=== PATIENT | female | born 1950 | race African-American/Black ===

== ENCOUNTER 2019-10-10 16:04 | Outpatient (CLI) | payer OTHER, SELFPAY ==
--- NOTE | ~2019-10-10 | CT_ITS ---
EXAMINATION: CT abdomen pelvis w con DATE: 10/10/2019 17:04 INDICATION: Unspecified abdominal pain TECHNIQUE: Computed tomography (CT) of the abdomen and pelvis was performed with 100 mL Omnipaque-350 intravenous contrast. Automated exposure control and iterative reconstruction technique were employe d. The dose-length product was 502.86 mGy-cm. COMPARISON: None FINDINGS: Mild bibasilar atelectasis. Heart size is normal. No pericardial or pleural effusion. A couple tiny l ow-attenuation hepatic cysts. Gallbladder, spleen, pancreas, bilateral adrenal glands and kidneys are normal. No bowel obstruction or abnormal bowel wall thickening. The appendix is not visualized. No p ericecal inflammatory change to suggest acute appendicitis. Bladder is normal. The uterus is not iden tified and has likely been surgically resected. Multiple surgical clips along the bilateral iliac willi ins suggesting prior pelvic lymph node dissection. No free intraperitoneal gas or fluid. No pathologi chet enlarged abdominal or pelvic lymphadenopathy. Small fat-containing umbilical hernia. Mild dextr oscoliosis and kyphosis centered at T11 which demonstrates severe anterior vertebral body height loss which is fused anteriorly and posteriorly to T11 and T12. IMPRESSION: 1. No acute intra-abdominal/pelvic process. Reviewed, dictated and finalized at location A.
[2019-10-10 16:51] LABS: Estimated Glomerular Filt Rate > 60
[2019-10-10 19:49] LABS: Hematocrit 39.4 % (37.0-47.0); Hemoglobin 12.7 g/dL (12.0-15.0); Mean Corpuscular HGB Conc 32.2 g/dl (32-36); Mean Corpuscular Hemoglobin 28.5 pg (26-34); Mean Corpuscular Volume 88.5 fl (80-100); Mean Platelet Volume 10.6 fl (7.4-10.4); Platelet Count Result 268 k/mm3 (150-375); Red Blood Count 4.45 M/mm3 (4.2-5.4); Red Cell Distribution Width 13.7 % (11.5-14.5); White Blood Count 4.8 K/mm3 (4.5-10.0)
[2019-10-10 20:02] LABS: Alanine Aminotransferase 11 U/L (4-35); Albumin Level 4.5 g/dL (3.5-5.1); Alkaline Phosphatase 74 U/L (38-126); Anion Gap 7 mmol/L (8-16); Aspartate Amino Transferase 23 U/L (14-36); Bilirubin,Total 0.5 mg/dL (0.2-1.3); Blood Urea Nitrogen 12 mg/dL (7-17); Calcium 10.7 mg/dL (8.4-10.2); Carbon Dioxide 32 mmol/L (22-30); Chloride 96 mmol/L (98-107); Estimated Glomerular Filt Rate > 60; Glucose 97 mg/dL (65-105); Lipase 235 U/L (23-300); Potassium 3.2 mmol/L (3.4-5.0); Sodium 135 mmol/L (137-145)
== END 2019-10-10 16:30 | disposition home or self-care (01) ==
PROVIDERS: PCP Internal Medicine; Visit Provider Nurse Practitioner
DX: E78.5 Hyperlipidemia, unspecified (principal); R10.9 Unspecified abdominal pain
CPT/HCPCS: 36415; 74177; 80053; 83690; 85027; Q9967

== ENCOUNTER 2020-01-16 12:38 | Outpatient (CLI) | payer OTHER, SELFPAY ==
--- NOTE | ~2020-01-16 | XR_ITS ---
. EXAMINATION: XR lg joint inject/asp w image DATE: 01/16/2020 13:29 INDICATION: Unilateral primary osteoarthritis, right hip. TECHNIQUE: A time-out was performed to verify the patient's name, date of , and procedure to b e performed. The procedure including the risks, benefits, and alternatives was discussed with the pat ient. Risks discussed included bleeding and infection. The patient understood the risks and agreed to proceed. The skin overlying the right hip joint was prepped and draped in usual sterile fashion. A nesthetic was administered with 1% lidocaine subcutaneously. A 22 G needle was advanced under fluoro scopic guidance into the joint. Injection of 1 mL of Omnipaque 240 confirmed intra-articular positio n of the needle. Subsequently, injectate consisting of 5 mL 1% lidocaine and 2 mL 10 mg/mL Kenalog w as instilled. The needle was removed and the entry site was cleaned and dressed. There were no imme diate complications. Fluoroscopy exposure time was 0.1 minutes. The total number of images was 2. FINDINGS: Real-time fluoroscopy demonstrates the needle in the right hip joint. Patient's pain prior to procedure:5/10. Patient's pain following the procedure: 0/10. IMPRESSION: 1. Fluoroscopy guided right hip joint injection of local anesthetic and steroid with decrease in the patient's presenting pain. Reviewed, dictated and finalized at location A. URCE CONSERVATIONIST
== END 2020-01-16 12:39 | disposition home or self-care (01) ==
PROVIDERS: PCP Internal Medicine; Visit Provider Orthopaedic Surgery
DX: M16.11 Unilateral primary osteoarthritis, right hip (principal)
CPT/HCPCS: 20610; 77002; J3301; Q9966

== ENCOUNTER 2020-03-08 10:40 | Outpatient (CLI) | payer OTHER, SELFPAY ==
--- NOTE | ~2020-03-08 | MR_ITS ---
EXAMINATION: MR shoulder LT wo con DATE: 03/08/2020 11:36 INDICATION: Left shoulder pain TECHNIQUE: Magnetic resonance imaging (MRI) of the left shoulder was performed without intravenous co ntrast. Sequences included axial PD-weighted FS FSE, coronal oblique PD-weighted FS FSE, coronal obli que T2-weighted FS FSE, sagittal PD-weighted FS FSE, and sagittal T1-weighted SE. COMPARISON: None. FINDINGS: Coracoacromial arch: The acromion undersurface is minimally curved in morphology (type I-II). The coracoacromial ligament is normal. Mild acromioclavicular osteoarthritis. Rotator cuff: Moderate supraspinatus and infraspinatus tendinopathy without discrete tear. The teres minor and subs capularis tendons are normal. Normal rotator cuff muscle bulk and signal. Biceps tendon, glenoid labrum and glenohumeral cartilage: Long head of the biceps tendon is normal. Glenoid labrum is normal. Glenohumeral cartilage is normal. Fluid: Small amount of fluid in the long head biceps tendon sheath which is disproportionate to the physiolo gic amount fluid in the glenohumeral joint space consistent with mild tenosynovitis. No loose osteoch ondral bodies. Small amount of fluid in the subcoracoid bursa consistent with mild bursitis. Bones: Normal marrow signal with no edema, fracture or abnormal marrow replacing process. IMPRESSION: 1. Moderate supraspinatus and infraspinatus tendinopathy without discrete tear. 2. Mild bicipital tenosynovitis. 3. Mild subcoracoid bursitis. Reviewed, dictated and finalized at location B. NING LATHE OPERATOR AUTOMATIC
== END 2020-03-08 10:41 ==
PROVIDERS: PCP Internal Medicine; Visit Provider Orthopaedic Surgery
DX: M75.52 Bursitis of left shoulder (principal)
CPT/HCPCS: 73221

== ENCOUNTER 2020-03-24 13:04 | Outpatient (CLI) | payer SELFPAY ==
--- NOTE | ~2020-03-24 | DEXA_ITS ---
Bone Density Report Name: Kendra Toledo I Age: 69 Sex: Female Ethnicity: Black Date of : 1950 Indication: postmenopausal; height loss; cancer; hysterectomy; Referring Provider: Kathryn Borden Study: Bone densitometry was performed. Exam Date: March 24, 2020 Accession number: [id number] Bone Density: Region BMD T-score Z-score Classification AP Spine (L3, L4) 1.078 -0.2 1.2 Normal Femoral Neck (Left) 0.926 0.7 1.2 Normal Total Hip (Left) 1.168 1.9 2.0 Normal Total Hip Bilateral Avg 1.128 1.6 1.7 Normal Femoral Neck (Right) 0.811 -0.3 0.4 Normal Total Hip (Right) 1.087 1.2 1.4 Normal World Health Organization criteria for BMD impression classify patients as: Normal (T-score at or above -1.0), Osteopenia (T-score between -1.0 and -2.5), or Osteoporosis (T-score at or below -2.5). 10-year Fracture Risk: FRAX not reported because: All T-scores for Spine Total, Hip Total, Femoral Neck at or above -1.0 Clinical Information Provided by Patient: Has the following medical conditions: Cancer, Hysterectomy Patient maximum height was 65 Menopause Age: 51 No regular weight bearing exercise Onset of menses at age 15 Number of children 0 Impression: The patient has normal bone mass. Discussion: BONE DENSITY IS ABOVE THE MINIMUM DESIRABLE LEVEL AT ALL SKELETAL SITES TESTED. This patient?s bone mineral density is above the minimum desirable level (T-score -1.0 or better) at all sites measured. The patient should follow a healthful lifestyle (good nutrition with adequate calcium and vitamin D, and appropriate weight-bearing exercise). Follow-Up: Consider repeating this study in 5 years or sooner if there is some new clinical indication. Reported by: ANDRE on 03/24/2020 1:35:00 PM. Reviewed, dictated and finalized at location AShelby CURRAN
== END 2020-03-24 13:05 | disposition home or self-care (01) ==
LOC: ANHIMG 13:07
PROVIDERS: PCP Internal Medicine; Visit Provider Internal Medicine Endocrinology, Diabetes & Metabolism
DX: Z78.0 Asymptomatic menopausal state (principal)
CPT/HCPCS: 77080

== ENCOUNTER → 2020-05-29 07:12 | Outpatient (CLI) | payer SELFPAY ==
[2020-05-29 17:41] LABS: SARS-CoV-2 RNA PCR Negative
== END ==
PROVIDERS: PCP Internal Medicine; Visit Provider Internal Medicine
DX: R68.89 Other general symptoms and signs (principal); Z20.822 Contact with and (suspected) exposure to COVID-19
CPT/HCPCS: C9803; U0003; U0005

== ENCOUNTER 2020-08-15 08:42 | Outpatient (CLI) | payer MEDICARE, SELFPAY ==
--- NOTE | ~2020-08-15 | MM_ITS ---
EXAMINATION: MM screening bishnu BI w tejas HISTORY: Screening TECHNIQUE: Craniocaudal and mediolateral oblique 3-D tomosynthesis images were obtained and synthetic 2-D images were generated. CAD analysis was submitted and interpreted. COMPARISON: No prior mammogram is available for comparison at this institution. BREAST PARENCHYMAL COMPOSITION: There are scattered areas of fibroglandular density. FINDINGS: There is focal asymmetry in the upper outer quadrant of the left breast, middle third. Ther e are no suspicious masses, calcifications or architectural distortion in the right breast to suggest malignancy. IMPRESSION: 1. Focal left breast asymmetry. 2. Additional mammographic views and possible breast ultrasound are recommended. BI-RADS Category 0: Incomplete: Needs additional imaging evaluation. Reviewed, dictated and finalized at location A. IMPRESSION: 1. Focal left breast asymmetry. 2. Additional mammographic views and possible breast ultrasound are recommended . BI-RADS Category 0: Incomplete: Needs additional imaging evaluation.
== END 2020-08-15 08:43 | disposition home or self-care (01) ==
PROVIDERS: PCP Internal Medicine; Visit Provider Nurse Practitioner
DX: Z12.31 Encounter for screening mammogram for malignant neoplasm of breast (principal)
CPT/HCPCS: 77063; 77067

== ENCOUNTER 2020-09-18 10:09 | Outpatient (CLI) | payer MEDICARE, SELFPAY ==
--- NOTE | ~2020-09-18 | XR_ITS ---
EXAMINATION: XR lg joint inject/asp w image DATE: 09/18/2020 10:58 INDICATION: Unilateral primary osteoarthritis of the right hip TECHNIQUE: A time-out was performed to verify the patient's name, date of , and procedure to b e performed. The procedure including the risks, benefits, and alternatives was discussed with the pat ient. Risks discussed included bleeding and infection. The patient understood the risks and agreed to proceed. The skin overlying the right hip joint was prepped and draped in usual sterile fashion. A nesthetic was administered with 1% lidocaine subcutaneously. A 22 G needle was advanced under fluoro scopic guidance into the joint. Injection of 1 mL of Omnipaque 240 confirmed intra-articular positio n of the needle. Subsequently, injectate consisting of 7 mm a 5:2 mixture of 1% lidocaine: 10 mg/mL Kenalog for a total dosage of 20 mg Kenalog was instilled. Washout of contrast was seen confirming in tra-articular administration. The needle was removed and the entry site was cleaned and dressed. The re were no immediate complications. Fluoroscopy exposure time was 0.1 minutes. The total number of im ages was 2. Total DAP was 0.348 mGycm^2 FINDINGS: Real-time fluoroscopy demonstrates the needle in the left hip joint. Patient's pain prior t o procedure:06/23. Patient's pain following the procedure: 03/26. IMPRESSION: 1. Successful right hip joint injection of local anesthetic and steroid with decrease in the patient' s presenting pain. Reviewed, dictated and finalized at location A. IMPRESSION: 1. Successful right hip joint injection of local anesthetic and steroid with de crease in the patient's presenting pain.
== END 2020-09-18 10:10 | disposition home or self-care (01) ==
PROVIDERS: PCP Internal Medicine; Visit Provider Orthopaedic Surgery
DX: M16.11 Unilateral primary osteoarthritis, right hip (principal)
CPT/HCPCS: 20610; 77002; J3301; Q9966

== ENCOUNTER 2021-03-26 10:46 | Outpatient (CLI) | payer MEDICARE, SELFPAY ==
--- NOTE | ~2021-03-26 | XR_ITS ---
EXAMINATION: XR lg joint inject/asp w image DATE: 03/26/2021 11:46 INDICATION: Right hip osteoarthritis and pain TECHNIQUE: A time-out was performed to verify the patient's name, date of , and procedure to b e performed. The procedure including the risks, benefits, and alternatives was discussed with the pat ient. Risks discussed included bleeding and infection. The patient understood the risks and agreed to proceed. The skin overlying the right hip joint was prepped and draped in usual sterile fashion. A nesthetic was administered with 1% lidocaine subcutaneously. A 22 G needle was advanced under fluoro scopic guidance into the joint. Injection of 1 mL of Omnipaque 240 confirmed intra-articular positio n of the needle. Subsequently, injectate consisting of 7 mm a 5:2 mixture of 1% lidocaine: 10 mg/mL Kenalog for a total dosage of 20 mg Kenalog was instilled. Washout of contrast was seen confirming in tra-articular administration. The needle was removed and the entry site was cleaned and dressed. The re were no immediate complications. Fluoroscopy exposure time was 0.1 minutes. The total number of im ages was 2. FINDINGS: Real-time fluoroscopy demonstrates the needle in the right hip joint. Patient's pain prior to procedure:03/26. Patient's pain following the procedure: 02/23. IMPRESSION: 1. Successful right hip joint injection of local anesthetic and steroid with decrease in the patient' s presenting pain. Reviewed, dictated and finalized at location A. ING MACHINE OPERATOR IMPRESSION: 1. Successful right hip joint injection of local anesthetic and steroid with de crease in the patient's presenting pain.
== END 2021-03-26 10:47 | disposition home or self-care (01) ==
PROVIDERS: PCP Internal Medicine; Visit Provider Orthopaedic Surgery
DX: M16.11 Unilateral primary osteoarthritis, right hip (principal)
CPT/HCPCS: 20610; 77002; J3301; Q9966

== ENCOUNTER 2021-09-01 09:50 | Outpatient (CLI) | payer MEDICARE, SELFPAY ==
--- NOTE | ~2021-09-01 | XR_ITS ---
EXAMINATION: XR lg joint inject/asp w image DATE: 09/01/2021 10:37 INDICATION: Right hip pain. TECHNIQUE: A time-out was performed to verify the patient's name, date of , and procedure to b e performed. The procedure including the risks, benefits, and alternatives was discussed with the pat ient. Risks discussed included bleeding and infection. The patient understood the risks and agreed to proceed. The skin overlying the right hip joint was prepped and draped in usual sterile fashion. A nesthetic was administered with 1% lidocaine subcutaneously. A 20 G needle was advanced under fluoro scopic guidance into the joint. Subsequently, injectate consisting of 5 mL 1% lidocaine and 2 mL 10 mg/mL Kenalog was instilled. The needle was removed and the entry site was cleaned and dressed. The re were no immediate complications. Fluoroscopy exposure time was 0.1 minutes. The total number of im ages was 1. FINDINGS: Real-time fluoroscopy demonstrates the needle in the right hip joint. IMPRESSION: 1. Fluoroscopy guided right hip joint injection of local anesthetic and steroid. Reviewed, dictated and finalized at location A. IMPRESSION: 1. Fluoroscopy guided right hip joint injection of local anesthetic and steroid .
== END 2021-09-01 09:51 | disposition home or self-care (01) ==
PROVIDERS: PCP Internal Medicine; Visit Provider Nurse Practitioner
DX: M25.551 Pain in right hip (principal)
CPT/HCPCS: 20610; 77002; J3301; Q9966

== ENCOUNTER 2021-09-29 11:05 | Outpatient (CLI) | payer MEDICARE, SELFPAY ==
--- NOTE | ~2021-09-29 | US_ITS ---
US thyroid INDICATION: Thyroid goiter TECHNIQUE: Real-time sonographic images of the thyroid gland were obtained. COMPARISON: No prior studies for comparison. FINDINGS: The right thyroid lobe measures 2.9 x 1.7 x 1.7 cm. The left thyroid lobe measures 1.6 x 0 .9 x 0.9 cm. There is normal echotexture and echogenicity throughout the thyroid gland. In the left t hyroid lobe there is an oval solid hypoechoic mass measuring 8 x 9 x 5 mm. This mass is wider than ta ll, smoothly marginated without echogenic foci, TR 4. Normal vascular flow is present. IMPRESSION: 1. Hypoechoic 9 mm left thyroid mass, TR 4, likely benign. This does not meet sonographic criteria f or biopsy. Reviewed, dictated and finalized at location B. IMPRESSION: 1. Hypoechoic 9 mm left thyroid mass, TR 4, likely benign. This does not meet sonographic criteria for biopsy.
== END 2021-09-29 11:06 | disposition home or self-care (01) ==
PROVIDERS: PCP Internal Medicine; Visit Provider Internal Medicine Endocrinology, Diabetes & Metabolism
DX: E04.9 Nontoxic goiter, unspecified (principal)
CPT/HCPCS: 76536

== ENCOUNTER 2021-12-30 09:12 | Outpatient (CLI) | payer MEDICARE, SELFPAY ==
--- NOTE | ~2021-12-30 | XR_ITS ---
EXAMINATION: XR lg joint inject/asp w image DATE: 12/30/2021 10:02 INDICATION: Unilateral primary osteoarthritis, right hip. TECHNIQUE: A time-out was performed to verify the patient's name, date of , and procedure to b e performed. The procedure including the risks, benefits, and alternatives was discussed with the pat ient. Risks discussed included bleeding and infection. The patient understood the risks and agreed to proceed. The skin overlying the right hip joint was prepped and draped in usual sterile fashion. A nesthetic was administered with 1% lidocaine subcutaneously. A 22 G needle was advanced under fluoro scopic guidance into the joint. Subsequently, injectate consisting of 5 mL 1% lidocaine and 2 mL 10 mg/mL Kenalog was instilled. The needle was removed and the entry site was cleaned and dressed. The re were no immediate complications. Fluoroscopy exposure time was 0.1 minutes. The total number of im ages was 1. FINDINGS: Real-time fluoroscopy demonstrates the needle in the right hip joint. Patient's pain prior to procedure:05/24. Patient's pain following the procedure: 02/23. IMPRESSION: 1. Fluoroscopy guided right hip joint injection of local anesthetic and steroid with decrease in the patient's presenting pain. Reviewed, dictated and finalized at location A. HER TENDER HELPER
== END 2021-12-30 09:13 | disposition home or self-care (01) ==
PROVIDERS: PCP Internal Medicine; Visit Provider Nurse Practitioner
DX: M16.11 Unilateral primary osteoarthritis, right hip (principal)
CPT/HCPCS: 20610; 77002; J3301

== ENCOUNTER 2022-01-04 09:16 | Outpatient (CLI) | payer MEDICARE, SELFPAY ==
--- NOTE | ~2022-01-04 | DEXA_ITS ---
Bone Density Report Name: TAE TERESA I Age: 71 Sex: Female Ethnicity: Black Date of : 1950 Indication: hyperparathyroidism; height loss; postmenopausal Referring Provider: VIVI, MEGHAN Santo Study: Bone densitometry was performed. Exam Date: January 04, 2022 Accession number: [id number] Bone Density: Region BMD T-score Z-score Classification Total Forearm (Left) 0.611 0.6 2.6 1/3 Forearm (Left) 0.703 0.2 2.3 UD Forearm (Left) 0.481 0.7 2.2 World Health Organization criteria for BMD impression classify patients as: Normal (T-score at or above -1.0), Osteopenia (T-score between -1.0 and -2.5), or Osteoporosis (T-score at or below -2.5). Clinical Information Provided by Patient: Has the following medical conditions: Hyperparathyroidism Patient maximum height was 64.5 Menopause Age: 51 No regular weight bearing exercise Drinks caffeinated beverages Onset of menses at age 13 Number of children 0 Impression: The patient has normal bone mass. Discussion: LOW RISK OF FRACTURE; BONE DENSITY IS WELL ABOVE THE MINIMUM DESIRABLE LEVEL AND ABOVE AVERAGE FOR AGE AND SEX AT ALL SKELETAL SITES TESTED. This person's bone density is above expected limits for age and sex. This is rarely clinically significant, but should be pursued if there are significant musculoskeletal complaints. The patient should follow a healthful lifestyle (good nutrition with adequate calcium and vitamin D, and appropriate weight-bearing exercise). Follow-Up: Consider repeating this study in 5 years or sooner if there is some new clinical indication. Reported by: ANDRE on 01/04/2022 9:47:00 AM. Reviewed, dictated and finalized at location AShelby [facility]
== END 2022-01-04 09:17 | disposition home or self-care (01) ==
PROVIDERS: PCP Internal Medicine; Visit Provider Internal Medicine Endocrinology, Diabetes & Metabolism
DX: Z78.0 Asymptomatic menopausal state (principal)
CPT/HCPCS: 77081

== ENCOUNTER → 2022-01-04 10:09 | Outpatient (CLI) | payer MEDICARE, SELFPAY ==
--- NOTE | ~2022-01-04 | MM_ITS ---
EXAMINATION: MM screening bishnu BI w tejas HISTORY: Screening mammogram TECHNIQUE: Craniocaudal and mediolateral oblique 3-D tomosynthesis images were obtained and synthetic 2-D images were generated. CAD analysis was submitted and interpreted. COMPARISON: 08/15/2020 10/10/2016, 12/21/2014 bilateral screening mammogram examinations BREAST PARENCHYMAL COMPOSITION: There are scattered areas of fibroglandular density. FINDINGS: Left screening mammogram: 2 contiguous small approximately 1.7 and 4 mm focal hyperdense ir regular high density opacities are noted in the outer left breast at mid depth on craniocaudal view. These are suspicious. Diagnostic left mammogram and right breast ultrasound examination are recommend ed Right screening mammogram: There is no evidence of suspicious mass, calcification, or architectural d istortion to suggest malignancy in either breast. There has been no suspicious interval change. IMPRESSION: 1. Small suspicious hyperdense masses in outer left breast 2. Diagnostic left mammogram and left breast ultrasound examination are recommended BI-RADS Category 0: Incomplete: Needs additional imaging evaluation. Reviewed, dictated and finalized at location A. O INSTALLER AUTOMOBILE IMPRESSION: 1. Small suspicious hyperdense masses in outer left breast 2. Diagnostic left mammogram and left breast ultrasound examination are recomme nded BI-RADS Category 0: Incomplete: Needs additional imaging evaluation.
== END ==
PROVIDERS: PCP Internal Medicine; Visit Provider Internal Medicine Endocrinology, Diabetes & Metabolism
DX: Z12.31 Encounter for screening mammogram for malignant neoplasm of breast (principal); R92.8 Other abnormal and inconclusive findings on diagnostic imaging of breast
CPT/HCPCS: 77063; 77067

== ENCOUNTER 2022-02-01 12:42 | Outpatient (CLI) | payer MEDICARE, SELFPAY ==
--- NOTE | ~2022-02-01 | MMUS_ITS ---
EXAMINATION: MM diagnostic bishnu LT w tejas, US breast LT limited HISTORY: Follow-up left breast asymmetry TECHNIQUE: Additional 3-D tomosynthesis images of the left breast were performed and synthetic 2-D im ages were generated. CAD analysis was submitted and interpreted. High resolution Limited left breast ultrasound was performed. COMPARISON: Comparison to multiple prior studies sequentially, with oldest reviewed study dated 09/07. BREAST PARENCHYMAL COMPOSITION: Breast composed of scattered areas of fibroglandular density FINDINGS: MAMMOGRAPHIC FINDINGS: Focal asymmetry in the upper outer quadrant of the left breast is unchanged dating back to 09/07/2013. This asymmetry is less apparent with spot compression views, most likely superimposed fibroglandular tissue or intramammary lymph node. ULTRASOUND: Limited left breast ultrasound: Normal heterogeneous echotexture in the upper-outer quadrant of the l eft breast without discrete mass. IMPRESSION: 1. Probable benign focal asymmetry upper outer quadrant of the left breast. No sonographic correlate. 2. Recommend 6 month follow-up diagnostic left mammogram BI-RADS category 3, probably benign findings. Reviewed, dictated and finalized at location A. STRIAL ENGINEERING INTERN IMPRESSION: 1. Probable benign focal asymmetry upper outer quadrant of the left breast. No sonographic correlate. 2. Recommend 6 month follow-up diagnostic left mammogram BI-RADS category 3, probably benign findings.
== END 2022-02-01 12:43 | disposition home or self-care (01) ==
LOC: ANHIMG 12:44
PROVIDERS: PCP Internal Medicine; Visit Provider Internal Medicine Endocrinology, Diabetes & Metabolism
DX: R92.8 Other abnormal and inconclusive findings on diagnostic imaging of breast (principal)
CPT/HCPCS: 76642; 77061; 77065; G0279

== ENCOUNTER 2022-05-31 12:46 | Outpatient (CLI) | payer MEDICARE, SELFPAY ==
--- NOTE | ~2022-05-31 | XR_ITS ---
EXAMINATION: XR lg joint inject/asp w image DATE: 05/31/2022 13:56 INDICATION: Right hip pain TECHNIQUE: A time-out was performed to verify the patient's name, date of , and procedure to b e performed. The procedure including the risks, benefits, and alternatives was discussed with the pat ient. Risks discussed included bleeding and infection. The patient understood the risks and agreed to proceed. The skin overlying the right hip joint was prepped and draped in usual sterile fashion. A nesthetic was administered with 1% lidocaine subcutaneously. A 22 G needle was advanced under fluoro scopic guidance into the joint. Injection of 1 mL of Omnipaque 240 confirmed intra-articular positio n of the needle. Subsequently, injectate consisting of 7 mm a 5:2 mixture of 1% lidocaine:10 mg/mL K enalog for a total dosage of 20 mg Kenalog was instilled. Washout of contrast was seen confirming int ra-articular administration. The needle was removed and the entry site was cleaned and dressed. Ther e were no immediate complications. Fluoroscopy exposure time was 0.1 minutes. The total number of luis ges was 2. FINDINGS: Real-time fluoroscopy demonstrates the needle in the right hip joint. Patient's pain prior to procedure:07/24. Patient's pain following the procedure: 02/23. IMPRESSION: 1. Successful right hip joint injection of local anesthetic and steroid with decrease in the patient' s presenting pain. Reviewed, dictated and finalized at location A. IMPRESSION: 1. Successful right hip joint injection of local anesthetic and steroid with de crease in the patient's presenting pain.
== END 2022-05-31 12:47 | disposition home or self-care (01) ==
PROVIDERS: PCP Internal Medicine; Visit Provider Nurse Practitioner
DX: M25.551 Pain in right hip (principal)
CPT/HCPCS: 20610; 77002; J3301; Q9966

== ENCOUNTER → 2022-08-31 14:21 | Outpatient (CLI) | payer MEDICARE, SELFPAY ==
--- NOTE | ~2022-08-31 | US_ITS ---
EXAMINATION: US thyroid DATE: 08/31/2022 15:46 INDICATION: Thyroid nodule. TECHNIQUE: Multiple ultrasound images of the thyroid were obtained. COMPARISON: Ultrasound 09/29/2021 FINDINGS: The right thyroid lobe measures 2.9 x 1.8 x 2.1 cm. The left thyroid lobe measures 1.8 x 0.7 x 1.2 c m. In the left thyroid lobe, there is a 9 mm solid, hypoechoic, wider than tall nodule with ill-defi chalino margin without echogenic foci (TI-RADS TR4). IMPRESSION: 1. Stable left thyroid nodule, likely not clinically significant. No follow-up is needed. Reviewed, dictated and finalized at location A.
--- NOTE | ~2022-08-31 | MMUS_ITS ---
EXAMINATION: MM diagnostic bishnu LT w tejas, US breast LT limited HISTORY: Follow-up left breast asymmetry TECHNIQUE: Additional 3-D tomosynthesis images of the left breast were performed and synthetic 2-D im ages were generated. CAD analysis was submitted and interpreted. High resolution Limited left breast ultrasound was performed. COMPARISON: Comparison to multiple prior studies sequentially, with oldest reviewed study dated 08/2014. BREAST PARENCHYMAL COMPOSITION: Breast composed of scattered areas of fibroglandular density FINDINGS: MAMMOGRAPHIC FINDINGS: There is a focal asymmetry in the upper outer quadrant of the left breast, middle third. There are no suspicious calcifications or architectural distortion. ULTRASOUND: Limited left breast ultrasound: At 2:00 near the nipple there is a small ill-defined shadowing struct ure. The margins are not well delineated. This is not identified on orthogonal and images. No discret e mass identified. IMPRESSION: 1. Focal asymmetry upper outer quadrant of the left breast, middle third. No definitive sonographic c orrelate. 2. Recommend stereotactic left breast biopsy. BI-RADS category 4, suspicious findings. Reviewed, dictated and finalized at location A. IMPRESSION: 1. Focal asymmetry upper outer quadrant of the left breast, middle third. No de finitive sonographic correlate. 2. Recommend stereotactic left breast biopsy. BI-RADS category 4, suspicious findings.
== END ==
PROVIDERS: PCP Nurse Practitioner; Visit Provider Internal Medicine Endocrinology, Diabetes & Metabolism
DX: R92.8 Other abnormal and inconclusive findings on diagnostic imaging of breast (principal); E04.1 Nontoxic single thyroid nodule
CPT/HCPCS: 76536; 76642; 77061; 77065; G0279

== ENCOUNTER 2022-09-21 13:14 | Outpatient (CLI) | payer MEDICARE, SELFPAY ==
--- NOTE | ~2022-09-21 | MM_ITS ---
EXAMINATION: MM stereotactic bx LT, MM post biopsy diagnostic LT, MM stereotactic specimen LT DATE: 09/21/2022 14:51 (accession [id number]), 09/21/2022 14:52 (accession [id number]), 09/21 14:51 (accession [id number]) INDICATION: Indeterminate mass in the upper outer quadrant of the left breast. Stereotactic core biop sy is requested evaluate for malignancy. TECHNIQUE AND FINDINGS: The risks and potential benefits of the procedure were discussed with the patient including bleeding and infection. A time out was performed to verify the patient's name, date of and site of proce dure to be performed. The patient was placed in the prone position with the left breast in craniocaud al compression, and the area of interest was localized and targeted utilizing digital imaging with st ereotaxis. After sterile preparation of the skin, 2 cc of 1% lidocaine were utilized for local anesthesia at the skin puncture site and 18 of 1% lidocaine with epinephrine were utilized for deeper local anesthesia about the biopsy site. A 9G [employer] vacuum assisted biopsy needle was advanced to the level of the nisha cification of interest from a cephalad approach utilizing stereotactic guidance and a total of six ti ssue core biopsies were obtained. A specimen radiograph demonstrates that the calcifications of interest are included within the tissue cores. A tissue marker clip was then placed at the biopsy site. The needle was removed and hemostas is was achieved. A sterile bandage was applied. The patient tolerated procedure well and there was no evidence of immediate complication. The patient was given verbal instructions to return to the [facility] in the event of severe breast pain or rapid breast enlargement. Tissue cores were sub mitted to surgical pathology for histologic analysis. A 2-view left unilateral digital mammogram was obtained post procedure and this demonstrates that the tissue marker clip is in expected position. IMPRESSION: 1. Successful stereotactic biopsy of a mass in the upper outer quadrant of the left breast, followed by tissue marker clip placement. Reviewed, dictated and finalized at location A. IMPRESSION: 1. Successful stereotactic biopsy of a mass in the upper outer quadrant of the left breast, followed by tissue marker clip placement. IMPRESSION: 1. Successful stereotactic biopsy of a mass in the upper outer quadrant of the left breast, followed by tissue marker clip placement.
== END 2022-09-21 13:15 | disposition home or self-care (01) ==
PROVIDERS: PCP Nurse Practitioner; Visit Provider Nurse Practitioner
DX: R92.8 Other abnormal and inconclusive findings on diagnostic imaging of breast (principal)
CPT/HCPCS: 19081; 77065; 88305; A4648

== ENCOUNTER 2022-09-22 10:21 | Outpatient (CLI) | payer MEDICARE, SELFPAY ==
--- NOTE | ~2022-09-22 | XR_ITS ---
EXAMINATION: XR lg joint inject/asp w image DATE: 09/22/2022 11:04 INDICATION: Right hip pain. TECHNIQUE: A time-out was performed to verify the patient's name, date of , and procedure to b e performed. The procedure including the risks, benefits, and alternatives was discussed with the pat ient. Risks discussed included bleeding and infection. The patient understood the risks and agreed to proceed. The skin overlying the right hip joint was prepped and draped in usual sterile fashion. A nesthetic was administered with 1% lidocaine subcutaneously. A 22 G needle was advanced under fluoro scopic guidance into the joint. Subsequently, injectate consisting of 5 mL 1% lidocaine and 2 mL 10 mg/mL Kenalog was instilled. The needle was removed and the entry site was cleaned and dressed. The re were no immediate complications. Fluoroscopy exposure time was 0.1 minutes. The total number of im ages was 1. FINDINGS: Real-time fluoroscopy demonstrates the needle in the right hip joint. Patient's pain prior to procedure:06/23. Patient's pain following the procedure: 02/23. IMPRESSION: 1. Fluoroscopy guided right hip joint injection of local anesthetic and steroid with decrease in the patient's presenting pain. Reviewed, dictated and finalized at location A.
== END 2022-09-22 10:22 | disposition home or self-care (01) ==
PROVIDERS: PCP Nurse Practitioner; Visit Provider Nurse Practitioner
DX: M25.551 Pain in right hip (principal)
CPT/HCPCS: 20610; 77002; J3301

== ENCOUNTER 2023-02-02 03:07 | Day surgery (SDC) | payer MEDICARE, SELFPAY ==
[2023-01-14 13:05] VITALS: BMI 25.8
--- NOTE | 2023-01-31 08:42 | SUR.PREOP ---
Patient called regarding upcoming procedure. Message left on patient's voicemail regarding appointment times.
[2023-02-02 10:15] VITALS: BP 165/79; PULSE 65; RESP 18; TEMP 36.4; O2SAT 100; BMI 29.7
[2023-02-02 10:29] LABS: Glucose Point of Care 77 mg/dl (65-105)
--- NOTE | 2023-02-02 10:40 | PM.HPGS ---
History of Present Illness History of Present Illness Consent: Risks, benefits, and alternatives have been discussed and questions answered. Patient agrees to proceed with procedure. Chief complaint: neoplasm screening Narrative: Kendra Toledo is a 72 year old female Referred for colon cancer screening. Review of Systems Review of Systems: All systems reviewed & are unremarkable except as noted in HPI and below PMFSH Past Medical History Medical History Adult hypothyroidism Anxiety Arthritis of left acromioclavicular joint Arthritis of right knee Benign essential hypertension BMI 28.0-28.9,adult Body mass index (bmi) 31.0-31.9, adult (11/07/18) Chronic GERD Chronic left shoulder pain Diabetes Fatigue H/O: HTN (hypertension) History of 2019 novel coronavirus disease (COVID-19) Hypercalcemia Hypercalcemia Hypercalcemia Hyperlipemia, mixed Osteoarthritis of right hip Other and unspecified hyperlipidemia Patella, chondromalacia Post-menopausal Shortness of breath Subacromial impingement of left shoulder Type 2 diabetes mellitus without complication, without long-term current use of insulin Upper back pain Surgical History Surgical History History of exploratory laparotomy (~2002) History of thyroidectomy Hx of cataract removal with insertion of prosthetic lens Hx of hysterectomy (~2002) Family History Family History Mother Hypertension Sibling Hypertension Unknown Cancer Social History Social History Smoking status: Never smoker Alcohol intake: never Substance use type: does not use Lack of Transportation: No Lack of Food: Never True Current Housing: I Have Housing Concerned About Future Housing: No Difficulty Paying Gas/Electric Bills: No Difficulty Paying for Meds: No Currently Unemployed: No Education: Master's Degree or Higher Difficulty w/ Childcare or Family Care: No Living arrangements: alone Occupation/Education: retired Additional occupation/education comments: 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 Gender identity (if verbalized by the patient): Female Spiritual care concerns: No Meds Home Medications and Allergies Home Medications Medication Instructions Recorded Confirmed Type atorvastatin 10 mg tablet See Rx Instructions .Route 08/19/22 01/25/23 Rx .COMPLEX #90 tabs irbesartan 300 mg tablet See Rx Instructions .Route 08/19/22 01/25/23 Rx .COMPLEX #90 tabs levothyroxine 50 mcg tablet 50 mcg PO DAILY #90 tabs 08/19/22 01/25/23 Rx pantoprazole 40 mg tablet,delayed 40 mg PO QAM #90 tabs 08/19/22 01/25/23 Rx release lorazepam 1 mg tablet (Ativan) 1 mg PO .COMPLEX PRN anxiety #90 09/01/22 01/25/23 Rx tabs metformin 500 mg tablet,extended 500 mg PO DAILY 01/14/23 01/25/23 History release 24 hr Allergies Allergy/AdvReac Type Severity Reaction Status Date / Time penicillin G Allergy Intermediate CHEST Verified 01/25/23 09:35 HEAVINESS FOR DENTAL WORK chloroquine Allergy Mild skin Verified 01/25/23 09:35 itching acetaminophen AdvReac Intermediate nausuea Verified 02/02/23 07:57 [From Darvocet-N] propoxyphene AdvReac Intermediate nausuea Verified 02/02/23 07:57 [From Darvocet-N] morphine AdvReac Mild decreased Verified 02/02/23 07:57 respiration during surgery fentanyl AdvReac Unknown Rash Verified 01/25/23 09:35 Vital Signs Vital Signs - 24 hr 02/02/23 10:15 Temperature 36.4 C L Pulse Rate 65 Respiratory Rate 18 Blood Pressure 165/79 H Pulse Oximetry 100 Oxygen Delivery Room Air Exam Const: General: alert Orientation/consciousness: patient oriented x3 Resp: Auscultation: clear to auscultation bilaterally Cardio: Rhythm: regular rhythm GI: GI Palp: Yes Soft to pal
--- NOTE | 2023-02-02 10:45 | WPDANESEPPF ---
Anes - Initial Pre Proc Eval Procedure: Operation Date: 02/02/23 11:30 Proposed Procedures p Screening Colonoscopy - Jasper Rolle MD Date/Time: 02/02/23 10:45 Surgeon: Jasper Rolle MD Pre Op Diagnosis: neoplasm screening Patient Data Age: 72 Gender: F Height: 1.6 m Weight: 76.3 kg Last Vital Signs Temp 36.4 C L 02/02/23 10:15 Pulse 65 02/02/23 10:15 Resp 18 02/02/23 10:15 BP 165/79 H 02/02/23 10:15 Pulse Ox 100 02/02/23 10:15 O2 Del Method Room Air 02/02/23 10:15 Allergies Allergy/AdvReac Type Severity Reaction Status Date / Time penicillin G Allergy Intermediate CHEST Verified 01/25/23 09:35 HEAVINESS FOR DENTAL WORK chloroquine Allergy Mild skin Verified 01/25/23 09:35 itching acetaminophen AdvReac Intermediate nausuea Verified 02/02/23 07:57 [From Darvocet-N] propoxyphene AdvReac Intermediate nausuea Verified 02/02/23 07:57 [From Darvocet-N] morphine AdvReac Mild decreased Verified 02/02/23 07:57 respiration during surgery fentanyl AdvReac Unknown Rash Verified 01/25/23 09:35 Home Medications Medication Instructions Recorded Confirmed Type atorvastatin 10 mg tablet See Rx Instructions .Route 08/19/22 01/25/23 Rx .COMPLEX #90 tabs irbesartan 300 mg tablet See Rx Instructions .Route 08/19/22 01/25/23 Rx .COMPLEX #90 tabs levothyroxine 50 mcg tablet 50 mcg PO DAILY #90 tabs 08/19/22 01/25/23 Rx pantoprazole 40 mg tablet,delayed 40 mg PO QAM #90 tabs 08/19/22 01/25/23 Rx release lorazepam 1 mg tablet (Ativan) 1 mg PO .COMPLEX PRN anxiety #90 09/01/22 01/25/23 Rx tabs metformin 500 mg tablet,extended 500 mg PO DAILY 01/14/23 01/25/23 History release 24 hr Laboratory Tests 02/02/23 10:21 POC Capillary Glucose 77 mg/dl (65-105) Patient hx anesthesia problems: none Family hx anesthesia problems: none Results Review: All pre-operative results and documents have been reviewed as part of the pre-operative evaluation. [facility] Past Medical History Medical History Adult hypothyroidism Anxiety Arthritis of left acromioclavicular joint Arthritis of right knee Benign essential hypertension BMI 28.0-28.9,adult Body mass index (bmi) 31.0-31.9, adult (11/07/18) Chronic GERD Chronic left shoulder pain Diabetes Fatigue H/O: HTN (hypertension) History of 2019 novel coronavirus disease (COVID-19) Hypercalcemia Hypercalcemia Hypercalcemia Hyperlipemia, mixed Osteoarthritis of right hip Other and unspecified hyperlipidemia Patella, chondromalacia Post-menopausal Shortness of breath Subacromial impingement of left shoulder Type 2 diabetes mellitus without complication, without long-term current use of insulin Upper back pain Surgical History Surgical History History of exploratory laparotomy (~2002) History of thyroidectomy Hx of cataract removal with insertion of prosthetic lens Hx of hysterectomy (~2002) Family History Family History Mother Hypertension Sibling Hypertension Unknown Cancer Social History Social History Smoking status: Never smoker Alcohol intake: never Substance use type: does not use Lack of Transportation: No Lack of Food: Never True Current Housing: I Have Housing Concerned About Future Housing: No Difficulty Paying Gas/Electric Bills: No Difficulty Paying for Meds: No Currently Unemployed: No Education: Master's Degree or Higher Difficulty w/ Childcare or Family Care: No Living arrangements: alone Occupation/Education: retired 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
[2023-02-02] MEDS: LACTATED RINGERS 1,000 ML 150 ML IV CONT (11:06)
[2023-02-02 11:22] VITALS: BP 135/72; PULSE 73; RESP 21; O2SAT 100
[2023-02-02 11:32] VITALS: BP 153/97; PULSE 65; RESP 20; O2SAT 100
[2023-02-02 11:42] VITALS: BP 148/78; PULSE 56; RESP 18; O2SAT 100
== END 2023-02-02 12:02 | disposition home or self-care (01) ==
PROVIDERS: PCP Nurse Practitioner; Visit Provider Internal Medicine Gastroenterology
PROC: 0DJD8ZZ Inspection of Lower Intestinal Tract, Via Natural or Artificial Opening Endoscopic (ICD-10-PCS; CPT 45378; principal; 2023-02-02 11:30)
DX: Z12.11 Encounter for screening for malignant neoplasm of colon (principal); I10 Essential (primary) hypertension; K21.9 Gastro-esophageal reflux disease without esophagitis; E78.2 Mixed hyperlipidemia; E11.9 Type 2 diabetes mellitus without complications; F41.9 Anxiety disorder, unspecified; E89.0 Postprocedural hypothyroidism; Z79.84 Long term (current) use of oral hypoglycemic drugs
CPT/HCPCS: G0121; 82948; J2704; J7120